=== PATIENT | female | born 1990 | race Caucasian/White ===

== ENCOUNTER 2020-05-30 15:13 | Inpatient (IN) | payer SELFPAY ==
--- NOTE | 2020-05-30 15:26 | ED_ITS ---
HPI - Psych General: Chief Complaint: Psychiatric Symptoms Stated Complaint: SI Time Seen by Provider: 05/30/20 15:16 History of Present Illness: HPI Narrative: 29-year-old female presents to the emergency room with complaint of extreme anxiety and suicidal suicidal ideation although she states she does not have a plan. She had a dream she states her she thought she was dying and voiced vocalized to her that that would be easier. She was supposed to have a telehealth visit today of some sort with psych and called to reschedule they instead talked to her on the phone during the course of this conversation it was thought necessary to call EMS to have her brought here for evaluation. The patient is quite tearful citing some issues involving DFS with her children as a precipitating cause. She has a difficult time focusing on exactly what happened today other than she just very anxious. She is shaking at times. She stopped taking one of her medications but does not know the name of the medication. She denies previous hospitalization for psychiatric illness. MD complaint: suicidal ideation and feels depressed Onset (ago): day(s) Duration: constant History of same: No Relieving factors: medication (Patient reports recently stopping an unknown medication that she was taking for depression) Exacerbating factors: medication (Stop medicine) and other (Family stressors) Context: not taking psychiatric medications Associated psychiatric symptoms: depression, suicidal ideation, homicidal ideation, racing thoughts, auditory hallucinations, visual hallucinations and delusions Associated symptoms: Deny auditory hallucinations, visual hallucinations, delusions, depression, homicidal ideation, suicidal ideation or racing thoughts Treatments prior to arrival: none If self harm: admits thoughts of self harm Review of Systems Const: Denies: fever(s), chills, body aches, change in appetite, fatigue or malaise ENMT: Denies: throat pain, ear or mastoid pain, nasal discharge or nasal congestion Card: Denies: chest pain, edema, dyspnea on exertion or orthopnea Resp: Denies: dyspnea, productive cough or non-productive cough GI: Denies: abdominal pain, nausea, vomiting, hematemesis, coffee ground emesis, diarrhea, constipation, bloating, hematochezia or melena : Denies: flank pain, difficulty voiding, dysuria, urinary frequency or urinary urgency Skin/Breast: Denies: rash or pruritus Psych: Denies: depression, visual hallucinations, auditory hallucinations, suicidal ideation or homicidal ideation [facility] PFSH: Medical History (Updated 05/30/20 @ 17:23 by Irinoe Gallardo DO) Depression Physical Exam Const: COMMON NORMALS: no acute distress GENERAL APPEARANCE: cooperative and comfortable ORIENTATION/CONSCIOUSNESS: Yes awake, Yes oriented to person, Yes oriented to place and Yes oriented to time HENMT: COMMON NORMALS: normocephalic, atraumatic and hearing grossly normal bilaterally HEAD & SCALP: normocephalic and atraumatic Eye: COMMON NORMALS: Equal, round and reactive pupils present, EOMs intact bilaterally, conjunctivae normal and no scleral icterus CONJUNCTIVA: Yes conjunctivae normal PUPIL: Yes Equal, round and reactive pupils present Neck/C-Spine: COMMON NORMALS: no JVD Resp: COMMON NORMALS: normal respiratory effort, No retractions, No use of accessory muscles and clear to auscultation bilaterally AUSCULTATION: clear to auscultation bilaterally Cardio: COMMON NORMALS: no JVD, regular rate, regular rhythm and No murmurs present (Cardio) RATE: regular rate RHYTHM: regular rhythm GI: COMMON NORMALS: Soft to palpation and No hepatosplenomegaly present AUSCULTATION: Yes normoactive bowel sounds PALPATION: Yes Soft to palpation, No Tenderness to palpation present (GI), No Guarding due to palpation present (GI) and Yes No hepatosplenomegaly present Extremity: COMMON NORMALS: normal to inspection, capillary refill normal, no clubbing, cyanosis or edema, no calf tenderness and no pedal edema Neuro: SENSORIUM/ORIENTATION: Yes oriented to person, Yes oriented to place and Yes oriented to time Psych: THOUGHT CONTENT: No delusions Skin: COMMON NORMALS: no rashes or lesions noted GENERAL SKIN EXAM: no rashes or lesions noted MDM - Psych MDM Narrative: Medical decision making narrative: Discussed with Dr. Osuna. We will go ahead and admit for suicidal ideation will have her on observation initially and he will do further evaluation. Lab Data: Labs: Lab Results 05/30/20 05/30/20 05/30/20 Range/Units 15:55 15:55 15:55 WBC 5.8 (4.0-10.0) 10^3/ uL RBC 4.51 (4.1-5.3) 10^6/u L Hgb 13.3 (11.5-15.3) g/dL Hct 40.5 (37.0-47.0) % MCV 89.8 (81-99) fL MCH 29.5 (28.0-34.0) pg MCHC 32.8 (30.0-36.0) g/dL RDW 13.1 (12.1-15.1) % Plt Count 316 (130-400) 10^3/c mm MPV 9.7 (7.4-10.4) fL Neut % (Auto) 67.6 % Lymph % (Auto) 23.0 % [place] % (Auto) 8.0 % Eos % (Auto) 0.7 % Baso % (Auto) 0.5 % Neut # (Auto) 3.91 (1.8-7.7) 10^3/u L Lymph # (Auto) 1.3 (0.8-4.8) 10^3/u L [place] # (Auto) 0.5 (0.2-0.9) 10^3/u L Eos # (Auto) 0.0 (0.0-0.8) 10^3/u L Baso # (Auto) 0.0 (0.0-0.1) 10^3/u L Nucleated RBC % (a uto) 0 % Nucleated RBCs # 0.0 /100WBC Sodium 138 (136-145) mmol/L Potassium 3.9 (3.5-5.1) mmol/L Chloride 103 (98-107) mmol/L Carbon Dioxide 23 (22-29) mmol/L Anion Gap 15.9 (5-19) BUN 11 (6-20) mg/dL Creatinine 0.6 (0.5-0.9) mg/dL GFR Calculation 116.6 (90-130) mL/min Glucose 93 (65-115) mg/dL Calculated Osmolal ity 285 (285-295) mOsm/k g Calcium 8.6 (8.5-10.5) mg/dL Total Bilirubin 0.2 (0.15-1.2) mg/dL AST 20 (0-32) U/L ALT 13 (0-33) U/L Alkaline Phosphata se 78 (35-105) IU/L Total Protein 7.2 (6.6-8.7) g/dL Albumin 4.3 (3.5-5.2) g/dL Globulin 2.9 (1.3-4.6) g/dL HCG, Qual Negative (Negative) Salicylates < 0.3 L (3-10) mg/dL Acetaminophen < 5.0 L (10-30) ug/mL Ethyl Alcohol 107 H (0-10) mg/dL Discharge Plan Discharge Patient Disposition: Placed in Observation Clinical Impression: Suicidal ideation, Depression Coding Level of Care Code ED Tax Associate for Linda Fwd Exam Comprehensive
[2020-05-30 15:28] VITALS: BP 162/118; PULSE 80; RESP 15; TEMP 36.4; O2SAT 98; BMI 31.3
[2020-05-30 16:31] LABS: Basophils % 0.5 %; Eosinophils % 0.7 %; Hematocrit 40.5 % (37.0-47.0); Hemoglobin 13.3 g/dL (11.5-15.3); Lymphocytes # 1.3 10^3/uL (0.8-4.8); Mean Corpuscular HGB Conc 32.8 g/dL (30.0-36.0); Mean Corpuscular Hemoglobin 29.5 pg (28.0-34.0); Mean Corpuscular Volume 89.8 fL (81-99); Mean Platelet Volume 9.7 fL (7.4-10.4); Monocytes # 0.5 10^3/uL (0.2-0.9); Neutrophils # 3.91 10^3/uL (1.8-7.7); Neutrophils % 67.6 %; Nucleated Red Blood Cells % 0 %; Platelet Count 316 10^3/cmm (130-400); Red Blood Count 4.51 10^6/uL (4.1-5.3); Red Cell Distribution Width 13.1 % (12.1-15.1); White Blood Count 5.8 10^3/uL (4.0-10.0)
[2020-05-30 16:37] LABS: HCG, Serum Qual Negative (Negative)
[2020-05-30 16:41] LABS: Alanine Aminotransferase 13 U/L (0-33); Albumin Level 4.3 g/dL (3.5-5.2); Alcohol Level 107 mg/dL (0-10); Alkaline Phosphatase 78 IU/L (35-105); Anion Gap 15.9 (5-19); Aspartate Amino Transferase 20 U/L (0-32); Blood Urea Nitrogen 11 mg/dL (6-20); Calcium 8.6 mg/dL (8.5-10.5); Carbon Dioxide 23 mmol/L (22-29); Chloride 103 mmol/L (98-107); Creatinine Clr Calc Pharmacy 157.0915; Globulin 2.9 g/dL (1.3-4.6); Glomerular Filtration Rate 116.6 mL/min (90-130); Glucose 93 mg/dL (65-115); Osmolality Calculated 285 mOsm/kg (285-295); Potassium 3.9 mmol/L (3.5-5.1); Sodium 138 mmol/L (136-145); Total Bilirubin 0.2 mg/dL (0.15-1.2); Total Protein 7.2 g/dL (6.6-8.7)
[2020-05-30 16:48] LABS: Acetaminophen < 5.0 ug/mL (10-30); Salicylate < 0.3 mg/dL (3-10)
[2020-05-30] MEDS: LORazepam 2 mg Tablet PO (17:22)
[2020-05-30 17:24] LABS: Urine Appearance Clear (CLEAR); Urine Color Yellow (Yellow); pH Urine 6 (5-7)
[2020-05-30 17:25] LABS: Add Urine Microscopic? YES; Bilirubin Urine Neg (Negative); Blood Urine Trace (Negative); Glucose Urine UA Norm (Normal); Ketones Urine Negative (Negative); Leukocyte Esterase Urine Negative (Negative); Nitrate Urine Negative (Negative); Protein Urine Neg (Negative); Urobilinogen Urine Norm (Negative)
[2020-05-30 17:29] LABS: RBC Urine RARE /hpf (0-2)
[2020-05-30 17:30] LABS: Add Urine Culture? No; Squamous Epithelial Cell Urine RARE /hpf (0-5)
[2020-05-30 17:34] LABS: Amphetamines Screen Urine Negative (Negative); Barbiturates Screen Urine Negative (Negative); Benzodiazepines Screen Urine Positive (Negative); Cocaine Screen Urine Negative (Negative); Opiate Screen Urine Negative (Negative); PCP Screen Urine Negative (Negative); THC Screen Urine Negative (Negative)
[2020-05-30] MEDS: hyDROXYzine 25 mg Capsule 50 MG PO ×2 (18:18→22:08)
--- NOTE | 2020-05-30 18:19 | PC.NURSE ---
PRN VISTARIL 50 MG GIVEN PO PER PT C/O ANXIETY. PT TEARFUL UPON ADMIT. WILL CONT TO MONITOR
[2020-05-30 20:25] VITALS: BP 121/89; PULSE 114; RESP 18; TEMP 36.6; O2SAT 95
[2020-05-30] MEDS: trazodone 50 mg Tablet PO (22:08)
[2020-05-31 06:00] VITALS: BP 126/87; PULSE 76; RESP 17; TEMP 36.3; O2SAT 96
[2020-05-31] MEDS: hyDROXYzine 25 mg Capsule 50 MG PO ×2 (10:21→20:54)
--- NOTE | 2020-05-31 10:21 | PC.NURSE ---
PRN VISTARIL 50 MG GIVEN PO PER PT C/O STATED ANXIETY
--- NOTE | 2020-05-31 13:53 | PM.NHP ---
Providers/Chief Complaint Admitting Physician: Kaushik Osuna MD Chief Complaint: SI HPI NPU History of Present Illness FAYE BRAND is a 29 year old female who presented to the emergency department with the following report: Chief Complaint: Psychiatric Symptoms Stated Complaint: SI Time Seen by Provider: 05/30/20 15:16 History of Present Illness: HPI Narrative: 29-year-old female presents to the emergency room with complaint of extreme anxiety and suicidal suicidal ideation although she states she does not have a plan. She had a dream she states her she thought she was dying and voiced vocalized to her that that would be easier. She was supposed to have a telehealth visit today of some sort with psych and called to reschedule they instead talked to her on the phone during the course of this conversation it was thought necessary to call EMS to have her brought here for evaluation. The patient is quite tearful citing some issues involving DFS with her children as a precipitating cause. She has a difficult time focusing on exactly what happened today other than she just very anxious. She is shaking at times. She stopped taking one of her medications but does not know the name of the medication. She denies previous hospitalization for psychiatric illness. complaint: suicidal ideation and feels depressed Onset (ago): day(s) Duration: constant History of same: No Relieving factors: medication (Patient reports recently stopping an unknown medication that she was taking for depression) Exacerbating factors: medication (Stop medicine) and other (Family stressors) Context: not taking psychiatric medications Associated psychiatric symptoms: depression, suicidal ideation, homicidal ideation, racing thoughts, auditory hallucinations, visual hallucinations and delusions Associated symptoms: Deny auditory hallucinations, visual hallucinations, delusions, depression, homicidal ideation, suicidal ideation or racing thoughts Treatments prior to arrival: none If self harm: admits thoughts of self harm. She was admitted to the neuropsychiatric unit for definitive treatment of those issues. She presents today reporting that she has had previous psychiatric admissions at a different facility. She reports that that was fully related to being given Dilaudid for treatment of pain she was having with some acute kidney disease/failure that she was having. She reports that that led to altered mental status which led to her having a psychiatric admission. She additionally reports that she has had treatment with such medication specifically for the fact that she has had panic attacks and anxiety. But otherwise she denies significant psychiatric treatment and she denies suicide attempts. She denies smoking cigarettes she reports that she drinks alcohol on occasion but then denies marijuana cocaine or any other illicit drugs. She is never had a rehab stay or DUI. She reports that her presentation here is mostly related to the stress and anxiety that has existed for her since DFS came into her life. She reports that they moved to this area from another area and they struggle to get her son converted over back to the medication that was helping him because there was a medication change prior to their coming here that did not work well. He is diabetic and because of him going to school and having multiple diabetic episodes he was taken away along with her 3 other kids. His A1c had gotten higher he just was not doing well and thriving since then moved to this area. She reports that recently with her landlord shut off the water which is residing in a different unit and she has been doing everything she needed to do while this was going on, reporting that she was going to her mother's house bathing her children getting water for anything they may be while they were getting through this. But that every time TRUONG met with her the threats of him taking the kids again this became overwhelming and his most recent threat led to her having a panic attack she felt she could not get out of. She reports that they requested that she be evaluated. We discussed the risks, benefits and alternatives of initiating BuSpar 50 mg p.o. twice daily along with propranolol 20 mg p.o. 3 times daily as needed and she understood and agreed to proceed as is documented in this note. Psychiatric history: As above. Substance abuse history: As above. Family history: She denied any mental health or addiction issues that run in the family she denied any suicide attempts or completions that run in the family. Developmental history: She reports that her mom's gestational period was her had no issues in reply delivery were without incident. She reports that she learned to walk and talk and met her developmental milestones on time. She reports that she did not require speech therapy, learning support, emotional support or special education classes outside the fact that she did get some assistance with reading. Psychosocial history: She reports that her mother and father were together for much of their lives that they had 2 children her and her younger sister and neither of them had any other children with anyone else. She presents it was really good and she denies emotional, physical or sexual abuse. She reports that she did not graduate from high school going only to the 11th grade as she reports she got and dropped out of school. She reports she did online schooling and got her diploma but then later auditing of different programs yielded that she did not do enough to get the official diploma and so she is not sure what she needs to do but she has not gotten her GED either. She is a heterosexual with her longest relationship being 16 years. She has been 1 time and has 4 children ages 10-15 with one of them being a boy. She is never in the and has no significant mosque belief system. Her longest employment was about 6 months. She currently lives in an apartment with her and 4 children and occasionally her father. Legal history: She reports that she did get rid of most of her couple of hours over a fine. Medical history: She denies any significant issues. Meds NPU Home Medications Medication Instructions Recorded Confirmed Last Taken Type citalopram 10 mg PO DAILY 05/30/20 05/30/20 05/30/20 History hydroxyzine HCl 25 mg PO DAILY 05/30/20 05/30/20 05/30/20 History Allergies Allergy/AdvReac Type Severity Reaction Status Date / Time No Known Allergies Allergy Unverified 05/30/20 16:04 PFSH NPU PFSH: Medical History (Updated 06/01/20 @ 06:23 by Kaushik Osuna MD) Depression Mental Status Exam MSE Comments: This is an obese white female with hospital gown on with adequate grooming and eye contact. No abnormal movements except for mild psychomotor agitation. Cooperative with exam in no acute distress. Speech was slightly decreased rate and volume mood described okay but anxious, affect congruent. Thought process organized. Thought content: Patient denied any suicidal or homicidal ideations, there were no delusions reported or noted, she denied any auditory or visual hallucinations. Attention and concentration were intact and memory appeared reliable but none were formally tested. She is alert and oriented x3. Insight and judgment appeared fair. Vitals/I&O/Wt Last Vital Signs Temp 97.6 F 05/31/20 21:50 Pulse 86 05/31/20 21:50 Resp 18 05/31/20 21:50 BP 124/84 05/31/20 21:50 Pulse Ox 96 05/31/20 21:50 Weight last 48 hrs Weight 90.718 kg Data NPU : 05/30/20 15:55 05/30/20 15:55 A&P Assessment and plan (1) Anxiety: Status: Acute (2) Suicidal ideation: Status: Acute (3) Depression: Status: Acute Additional A&P Information This is a 29-year-old white female with a history of anxiety related conditions, depression and recent suicidal ideation with stressors and adjusting to the presence of DFS in her life, who presents with an openness for some medication trials. 1. Continue current medication. Except: Start BuSpar 15 mg p.o. twice daily and propranolol 20 mg p.o. 3 times daily as needed. 2. Continue every 15 minute checks for safety. 3. Encourage individual, group and milieu therapy. 4. Patient agreed to stay another 24 hours for evaluation of the medication as she was desirous of discharge but we agreed all things considered it was best that she be evaluated for her response to medication. Involuntary Hold Information 96 Hour Hold: 96 Hour Involuntary Admission: No Attestations NPU Medical Necessity Statement*: Inpatient hospitalization is medically necessary and the clinically appropriate intervention at this time. We will monitor medications and make changes as indicated. She will be in the hospital for over 2 midnights in total. Likely length of stay 1 to 3 days. Coding Level of Care Code Acute Studio Operations Manager for Linda Brunner Diagnoses Anxiety F41.9 Suicidal ideation R45.851 Depression F32.9
[2020-05-31 14:00] VITALS: BP 128/92; PULSE 99; RESP 18; TEMP 36.2; O2SAT 98
[2020-05-31] MEDS: propranolol 20 mg Tablet PO ×2 (14:23→20:54)
[2020-05-31] MEDS: blistex lip oint 7 gm Tube 1 APPLIC TOPICAL ×2 (15:50→21:37)
[2020-05-31] MEDS: trazodone 50 mg Tablet PO (20:54)
[2020-05-31 21:50] VITALS: BP 124/84; PULSE 86; RESP 18; TEMP 36.4; O2SAT 96
--- NOTE | 2020-05-31 23:11 | PC.NURSE ---
ASSESSMENT PT DENIES SI/HI/AH/VH AT THIS TIME. SHE IS DEPRESSED SHE HAS MISSED A BIRTHDAY FOR HER CHILD. STATES THAT SHE IS DEPRESSED AND ANXIOUS SINCE SHE HAD TO POSTPONE THIS REPUBLICAN TO STAY IN THE UNIT ANOTHER DAY. PT REPORTS NEEDING HELP WITH RESOURCES TO AIDE IN FAMILY UNIFICATION D/T CURRENT LIVING SITUATION. HER HOME DOES NOT HAVE WATER AND HER CHILD IS AT RISK OF REMOVAL BECAUSE OF LIVING SITUATION. PT FEELS TRAPPED BY THESE CIRCUMSTANCES.
[2020-06-01 06:00] VITALS: BP 115/76; PULSE 71; RESP 17; TEMP 36.8; O2SAT 98
[2020-06-01 13:33] VITALS: BP 120/85; PULSE 78; RESP 18; TEMP 36.8; O2SAT 97
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
[2020-06-01 14:00] VITALS: BP 120/85; PULSE 78; RESP 18; TEMP 36.8; O2SAT 97
== END 2020-06-01 16:19 | disposition home or self-care (01) | DRG 880 ==
LOC: ER 17:23 → NP 17:26
PROVIDERS: Admitting Provider Psychiatry & Neurology Psychiatry; Emergency Provider Family Medicine; Visit Provider Psychiatry & Neurology Psychiatry
DX: F41.8 Other specified anxiety disorders (principal); R45.851 Suicidal ideations
CPT/HCPCS: 12345; 80053; 80306; 80307; 81001; 84703; 85025; 99284; G0378

== ENCOUNTER 2021-07-13 11:44 | Inpatient (IN) | payer MEDICAID, SELFPAY ==
[2021-07-13 11:44] VITALS: BP 145/103; PULSE 133; RESP 18; TEMP 37.3; O2SAT 98
--- NOTE | 2021-07-13 11:46 | ECG_ITS ---
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 Measurements Intervals [place] Rate: 120 P: 45 OR: 132 QRS: 51 QRSD: 84 T: 36 QT: 367 QTc: 519 Interpretive Statements SINUS TACHYCARDIA MODERATE ST DEPRESSION [0.05+ mV ST DEPRESSION] No previous ECG available for comparison Electronically Signed On 07-14-2021 17:14:01 FORESTRY FOREMAN by Nataliia Moreau M.D. [id number]
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
[2021-07-13 11:56] VITALS: BP 145/103; PULSE 133; RESP 18; TEMP 37.3; O2SAT 98
[2021-07-13 12:05] LABS: Basophils % 0.2 %; Hematocrit 37.6 % (37.0-47.0); Hemoglobin 12.7 g/dL (11.5-15.3); Lymphocytes # 0.8 10^3/uL (0.8-4.8); Lymphocytes % 7.2 %; Mean Corpuscular HGB Conc 33.8 g/dL (30.0-36.0); Mean Corpuscular Hemoglobin 30.4 pg (28.0-34.0); Mean Platelet Volume 11.7 fL (7.4-10.4); Monocytes # 1.1 10^3/uL (0.2-0.9); Monocytes % 10.5 %; Neutrophils # 8.77 10^3/uL (1.8-7.7); Neutrophils % 81.6 %; Nucleated Red Blood Cells % 0 %; Platelet Count 183 10^3/cmm (130-400); Red Blood Count 4.18 10^6/uL (4.1-5.3); Red Cell Distribution Width 15.8 % (12.1-15.1); White Blood Count 10.7 10^3/uL (4.0-10.0)
[2021-07-13 12:25] LABS: HCG, Serum Qual Negative (Negative)
[2021-07-13 12:27] LABS: Alanine Aminotransferase 63 U/L (0-33); Albumin Level 4.7 g/dL (3.5-5.2); Alkaline Phosphatase 81 IU/L (35-105); Anion Gap 31.5 (5-19); Aspartate Amino Transferase 99 U/L (0-32); Blood Urea Nitrogen 15 mg/dL (6-20); Calcium 8.6 mg/dL (8.5-10.5); Carbon Dioxide 18 mmol/L (22-29); Chloride 90 mmol/L (98-107); Globulin 2.9 g/dL (1.3-4.6); Glomerular Filtration Rate 115.1 mL/min (90-130); Glucose 91 mg/dL (65-115); Osmolality Calculated 284 mOsm/kg (285-295); Sodium 137 mmol/L (136-145); Total Bilirubin 1.1 mg/dL (0.15-1.2); Total Protein 7.6 g/dL (6.6-8.7)
[2021-07-13 12:34] LABS: Acetaminophen < 5.0 ug/mL (10-30); Alcohol Level < 10 mg/dL (0-10); Potassium 2.5 mmol/L (3.5-5.1); Salicylate < 0.3 mg/dL (3-10)
[2021-07-13] MEDS: sodium chloride 0.9% 1,000 ML 999 ML IV (12:44)
[2021-07-13] MEDS: LORazepam 2 mg/mL INJ 1 mL IVP (12:44)
[2021-07-13] MEDS: lidocaine 1% 5 ML in potassium chloride premix 100 ML 25 ML IV (12:48)
[2021-07-13] MEDS: potassium chloride ER 20 mEq Tablet 40 MEQ PO (12:48)
[2021-07-13 12:57] LABS: Magnesium 1.1 mg/dL (1.7-2.3)
[2021-07-13 13:01] LABS: Amphetamines Screen Urine Positive (Negative); Barbiturates Screen Urine Negative (Negative); Benzodiazepines Screen Urine Negative (Negative); Cocaine Screen Urine Negative (Negative); Opiate Screen Urine Negative (Negative); PCP Screen Urine Negative (Negative); THC Screen Urine Negative (Negative)
[2021-07-13 13:16] LABS: Creatine Phosphokinase 1353 U/L (26-192)
[2021-07-13] MEDS: magnesium sulfate premix 2 GM/50 ML PIGGYBACK IV (14:03)
[2021-07-13 14:19] VITALS: BP 145/103; PULSE 133; RESP 18; TEMP 37.3; O2SAT 98
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
[2021-07-13 15:50] VITALS: BP 134/84; PULSE 93; RESP 16; TEMP 37.1; O2SAT 99
[2021-07-13 20:44] VITALS: BP 125/76; PULSE 112; RESP 16; TEMP 37.2; O2SAT 97
[2021-07-13] MEDS: acetaminophen 325 mg Tablet 650 MG PO (22:33)
[2021-07-13 23:24] VITALS: BP 119/72; PULSE 115; RESP 16; TEMP 36.4; O2SAT 95
[2021-07-14] MEDS: sodium chlor 0.9% + KCl 20 mEq 20 MEQ/1,000 ML BAG 100 MEQ IV ×2 (01:10→08:35)
[2021-07-14 04:00] VITALS: BP 130/89; PULSE 107; RESP 19; TEMP 36.4; O2SAT 99
[2021-07-14] MEDS: acetaminophen 325 mg Tablet 650 MG PO (04:40)
[2021-07-14] MEDS: lanolin oint 7 gm 1 APPLIC TOPICAL (04:58)
[2021-07-14 06:07] LABS: Basophils % 0.5 %; Eosinophils % 0.2 %; Hematocrit 32.1 % (37.0-47.0); Hemoglobin 10.6 g/dL (11.5-15.3); Lymphocytes % 23.2 %; Mean Corpuscular Hemoglobin 30.7 pg (28.0-34.0); Mean Platelet Volume 10.8 fL (7.4-10.4); Monocytes # 0.5 10^3/uL (0.2-0.9); Monocytes % 11.5 %; Neutrophils # 2.74 10^3/uL (1.8-7.7); Neutrophils % 64.1 %; Nucleated Red Blood Cells % 0 %; Platelet Count 143 10^3/cmm (130-400); Red Blood Count 3.45 10^6/uL (4.1-5.3); Red Cell Distribution Width 15.9 % (12.1-15.1); White Blood Count 4.3 10^3/uL (4.0-10.0)
[2021-07-14 06:28] LABS: Anion Gap 16.2 (5-19); Blood Urea Nitrogen 9 mg/dL (6-20); Carbon Dioxide 23 mmol/L (22-29); Chloride 101 mmol/L (98-107); Glomerular Filtration Rate 256.2 mL/min (90-130); Glucose 86 mg/dL (65-115); Osmolality Calculated 282 mOsm/kg (285-295); Potassium 3.2 mmol/L (3.5-5.1); Sodium 137 mmol/L (136-145)
[2021-07-14 06:37] LABS: Creatine Phosphokinase 588 U/L (26-192)
[2021-07-14 08:02] VITALS: BP 127/88; PULSE 105; RESP 15; TEMP 36.9; O2SAT 97
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
[2021-07-14] MEDS: potassium chloride ER 20 mEq Tablet 40 MEQ PO (08:32)
--- NOTE | 2021-07-14 12:17 | PC.NURSE ---
called and report given to NPU nurse.
--- NOTE | 2021-07-14 12:24 | PC.NURSE ---
patient belongings including purse, shoes, clothes, taken to NPU at transfer to staff
--- NOTE | 2021-07-14 12:45 | PC.NURSE ---
transferred to NPU via wheelchair with security present.
[2021-07-14 12:56] VITALS: BP 146/96; PULSE 104; RESP 17; TEMP 36.9; O2SAT 96
[2021-07-14] MEDS: hyDROXYzine 25 mg Capsule 50 MG PO (13:48)
[2021-07-14 14:00] VITALS: BP 143/94; PULSE 114; RESP 18; O2SAT 97
[2021-07-14] MEDS: OLANZapine 5 mg ODT PO (14:11)
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
[2021-07-14] MEDS: ziprasidone hcl 20 mg Capsule PO (18:31)
[2021-07-14 20:25] VITALS: BP 115/80; PULSE 94; RESP 15; TEMP 36.7; O2SAT 99
[2021-07-15] MEDS: hyDROXYzine 25 mg Capsule 50 MG PO (05:13)
[2021-07-15] MEDS: acetaminophen 325 mg Tablet 650 MG PO (05:13)
--- NOTE | 2021-07-15 05:15 | PC.NURSE ---
PT CAME TO DESK REQUESTING PAIN MED AND SOMETHING FOR MEMORIES . TYLENOL 650MG PO FOR PAIN AND VISTRIL 50MG PO FOR ANXIETY GIVEN.
[2021-07-15 05:25] VITALS: BMI 28.1
[2021-07-15 06:00] VITALS: BP 110/74; PULSE 94; RESP 16; TEMP 36.6; O2SAT 98; BMI 28.1
[2021-07-15] MEDS: ziprasidone hcl 20 mg Capsule PO ×2 (06:36→11:02)
[2021-07-15] MEDS: potassium chloride ER 20 mEq Tablet 40 MEQ PO (09:57)
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
[2021-07-15] MEDS: loperamide 2 mg Capsule PO (11:02)
[2021-07-15 11:53] LABS: Basophils % 0.6 %; Eosinophils % 0.2 %; Hemoglobin 12.4 g/dL (11.5-15.3); Lymphocytes # 1.4 10^3/uL (0.8-4.8); Lymphocytes % 28.9 %; Mean Corpuscular HGB Conc 33.5 g/dL (30.0-36.0); Mean Corpuscular Hemoglobin 31.2 pg (28.0-34.0); Mean Corpuscular Volume 93.2 fl (81-99); Mean Platelet Volume 10.1 fL (7.4-10.4); Monocytes # 0.7 10^3/uL (0.2-0.9); Monocytes % 14.7 %; Neutrophils # 2.72 10^3/uL (1.8-7.7); Nucleated Red Blood Cells % 0 %; Platelet Count 241 10^3/cmm (130-400); Red Blood Count 3.97 10^6/uL (4.1-5.3); Red Cell Distribution Width 16.5 % (12.1-15.1)
[2021-07-15 12:12] LABS: Anion Gap 16.8 (5-19); Blood Urea Nitrogen 6 mg/dL (6-20); Carbon Dioxide 26 mmol/L (22-29); Chloride 100 mmol/L (98-107); Glomerular Filtration Rate 183.8 mL/min (90-130); Glucose 115 mg/dL (65-115); Osmolality Calculated 287 mOsm/kg (285-295); Potassium 3.8 mmol/L (3.5-5.1); Sodium 139 mmol/L (136-145)
[2021-07-15 14:00] VITALS: BP 121/79; PULSE 97; RESP 18; TEMP 36.8; O2SAT 97
[2021-07-15] MEDS: ziprasidone hcl 40 mg Capsule PO (17:13)
[2021-07-15 19:45] VITALS: BP 106/70; PULSE 105; RESP 15; TEMP 37.2; O2SAT 98
[2021-07-15] MEDS: trazodone 50 mg Tablet 100 MG PO (19:51)
[2021-07-16] MEDS: hyDROXYzine 25 mg Capsule 50 MG PO (02:52)
[2021-07-16 06:00] VITALS: BP 127/85; PULSE 81; RESP 17; TEMP 36.5; O2SAT 98
[2021-07-16 08:08] LABS: Basophils % 0.8 %; Eosinophils % 0.2 %; Hematocrit 39.5 % (37.0-47.0); Hemoglobin 13.4 g/dL (11.5-15.3); Lymphocytes # 1.5 10^3/uL (0.8-4.8); Lymphocytes % 30.8 %; Mean Corpuscular HGB Conc 33.9 g/dL (30.0-36.0); Mean Corpuscular Hemoglobin 31.7 pg (28.0-34.0); Mean Corpuscular Volume 93.4 fl (81-99); Mean Platelet Volume 9.7 fL (7.4-10.4); Monocytes # 0.7 10^3/uL (0.2-0.9); Monocytes % 14.9 %; Neutrophils # 2.53 10^3/uL (1.8-7.7); Neutrophils % 52.9 %; Nucleated Red Blood Cells % 0 %; Platelet Count 292 10^3/cmm (130-400); Red Blood Count 4.23 10^6/uL (4.1-5.3); Red Cell Distribution Width 16.9 % (12.1-15.1); White Blood Count 4.8 10^3/uL (4.0-10.0)
[2021-07-16 08:35] LABS: Anion Gap 14.8 (5-19); Blood Urea Nitrogen 5 mg/dL (6-20); Calcium 9.1 mg/dL (8.5-10.5); Carbon Dioxide 26 mmol/L (22-29); Chloride 102 mmol/L (98-107); Glomerular Filtration Rate 183.8 mL/min (90-130); Glucose 125 mg/dL (65-115); Osmolality Calculated 287 mOsm/kg (285-295); Potassium 3.8 mmol/L (3.5-5.1); Sodium 139 mmol/L (136-145)
[2021-07-16] MEDS: potassium chloride ER 20 mEq Tablet 40 MEQ PO (09:03)
--- NOTE | 2021-07-16 11:01 | NPU.GN ---
[facility] Unit Group Topic: Ice Breakers General Mood of Group: Sharita did attend and participate in group today. She was social, hygiene was good , and seems mentally stable.
[2021-07-16] MEDS: ziprasidone hcl 20 mg Capsule PO (11:54)
[2021-07-16 13:41] VITALS: BP 127/85; PULSE 81; RESP 17; TEMP 36.5; O2SAT 98
[2021-07-16 13:43] VITALS: BP 114/78; PULSE 111; RESP 17; O2SAT 96
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
[2021-07-16] MEDS: ziprasidone hcl 40 mg Capsule PO (17:15)
[2021-07-16 17:54] VITALS: BP 114/78; PULSE 111; RESP 17; O2SAT 96
--- NOTE | 2021-07-17 08:37 | PC.OT ---
PATIENT DISCHARGED BEFORE NPU EVAL COMPLETED.
== END 2021-07-16 17:54 | disposition home or self-care (01) | DRG 885 ==
LOC: ER 13:51 → MEDSURG 17:07 → NP 07-14 12:53
PROVIDERS: Admitting Provider Internal Medicine; Emergency Provider Emergency Medicine; Visit Provider Family Medicine
DX: F23 Brief psychotic disorder (principal); F33.1 Major depressive disorder, recurrent, moderate; E86.0 Dehydration; E87.6 Hypokalemia; T79.6XXA Traumatic ischemia of muscle, initial encounter; X58.XXXA Exposure to other specified factors, initial encounter; F15.10 Other stimulant abuse, uncomplicated; F41.9 Anxiety disorder, unspecified; E83.42 Hypomagnesemia
CPT/HCPCS: 36415; 80048; 80053; 80306; 80307; 82550; 83605; 83735; 84703; 85025; 93005; 96365; 96366; 96367; 96375; 99285; J2060; J3475; J3480; J7030

== ENCOUNTER → 2021-09-06 13:23 | Outpatient (BNVA) | payer OTHER, SELFPAY | PROVIDERS: Visit Provider Registered Nurse | DX: Z79.899 Other long term (current) drug therapy (principal) | CPT/HCPCS: 80061; 83036; 84443 ==

== ENCOUNTER → 2021-09-20 14:38 | Outpatient (BNVA) | payer OTHER, SELFPAY | PROVIDERS: Visit Provider Registered Nurse | DX: F15.10 Other stimulant abuse, uncomplicated (principal) | CPT/HCPCS: 80306 ==

== ENCOUNTER → 2021-12-13 16:00 | Outpatient (BNVA) | payer OTHER, MEDICAID, SELFPAY | PROVIDERS: Visit Provider Counselor Professional | DX: F15.10 Other stimulant abuse, uncomplicated (principal); F23 Brief psychotic disorder | CPT/HCPCS: 90834 ==

== ENCOUNTER → 2022-05-10 15:51 | Outpatient (BNVA) | payer OTHER, SELFPAY | PROVIDERS: Visit Provider Emergency Medicine | DX: M25.531 Pain in right wrist (principal) | CPT/HCPCS: 73110 ==